=== PATIENT | male | born 1990 | race African-American/Black ===

== ENCOUNTER 2020-11-12 15:17 | Emergency (ER) | payer SELFPAY ==
[2020-11-12 15:37] VITALS: BMI 29.0
[2020-11-12 17:47] LABS: CHLORIDE 103 mmol/L (98-107); POTASSIUM 3.9 mmol/L (3.5-5.1); SODIUM 136 mmol/L (136-145)
[2020-11-12 17:49] LABS: ALBUMIN 4.2 g/dl (3.4-5.0); ANION GAP 7 MMOL/L (8-16); BLOOD UREA NITROGEN 17.1 mg/dL (7-18); CALCIUM 9.1 mg/dL (8.5-10.1); CO2 26 mmol/L (21-32); GLUCOSE,RANDOM 94 mg/dL (74-106)
[2020-11-12 17:52] LABS: CREATININE 1.1 mg/dL (0.55-1.3); SGOT/AST 73 U/L (15-37); SGPT/ALT 131 U/L (13-61)
[2020-11-12 17:55] LABS: ALK PHOS 63 U/L (45-117); BILIRUBIN,TOTAL 0.3 mg/dL (0.2-1); TOT PROT 7.5 g/dl (6.4-8.2)
[2020-11-12 19:06] VITALS: BP 130/82; PULSE 78; TEMP 98.2
== END 2020-11-12 19:06 | disposition home or self-care (01) ==
LOC: JER 15:17
DX: R06.02 Shortness of breath (principal); R07.9 Chest pain, unspecified
CPT/HCPCS: 36415; 80053; 84443; 84484; 93005; 93010; 99284-25

== ENCOUNTER 2023-05-12 17:07 | Emergency (ER) | payer OTHER ==
[2023-05-12 17:27] VITALS: BP 111/66; PULSE 90; RESP 20; TEMP 98.3; BMI 32.3
[2023-05-12] MEDS ORDERED: ACETAMINOPHEN 325 MG TABLET (FP) PO ONE (18:16)
[2023-05-12] MEDS ORDERED: SODIUM CHLORIDE 0.9% 1000 ML INFUS.BAG IV ONE (18:31)
[2023-05-12] MEDS ORDERED: LIDOCAINE 4% PATCH TP ONE ×2 (18:40→18:41)
[2023-05-12] MEDS ORDERED: ACETAMINOPHEN 325 MG TABLET (FP) ONE (18:40)
[2023-05-12] MEDS: LIDOCAINE 5% TOPICAL PATCH TP ONE ×2 (18:45)
[2023-05-12 19:02] LABS: BASO % 0.9 % (0-2.0); EOS % 0.8 % (0-4.5); HEMATOCRIT 39.4 % (35.4-49); HEMOGLOBIN 13.2 GM/dL (11.7-16.9); LYMPH % 43.4 % (8-40); MCH 28.2 pg (25.7-33.7); MCHC 33.6 g/dl (32.0-35.9); MEAN CELL VOLUME 83.8 fl (80-96); MEAN PLT VOLUME 8.7 fl (7.5-11.1); MONO % 9.9 % (3.8-10.2); PLATELET COUNT 223 10^3/uL (134-434); POTASSIUM 4.1 mmol/L (3.5-5.1); RDW 13.9 % (11.9-15.9)
[2023-05-12 19:04] LABS: BLOOD UREA NITROGEN 19.2 mg/dL (7-18); CALCIUM 8.5 mg/dL (8.5-10.1)
[2023-05-12 19:06] LABS: INR 1.03 (0.83-1.09); PROTHROMBIN TIME (PATIENT) 11.9 SEC (9.7-13.0)
[2023-05-12 19:08] LABS: ACTIVATED PTT 29.5 SECONDS (25.2-36.5)
[2023-05-12 19:09] LABS: BILIRUBIN,TOTAL 0.2 mg/dL (0.2-1); TOT PROT 7.3 g/dl (6.4-8.2)
[2023-05-12 19:12] LABS: N-TERMINAL BNP 12.3 pg/ml (5-125)
[2023-05-12] MEDS ORDERED: LIDOCAINE PATCH REMOVAL MC SCH ×2 (22:00)
== END 2023-05-12 20:27 | disposition home or self-care (01) ==
LOC: JER 17:07
DX: R07.89 Other chest pain (principal); I42.9 Cardiomyopathy, unspecified; R73.9 Hyperglycemia, unspecified; R06.02 Shortness of breath; R42 Dizziness and giddiness
CPT/HCPCS: 36415; 71046-TC-FY; 80053; 83735; 83880; 84484; 85025; 85610; 85730; 93005; 93010; 99285-25

== ENCOUNTER 2024-02-07 19:05 | Emergency (ER) | payer OTHER ==
[2024-02-07 19:38] VITALS: BP 123/72; PULSE 63; RESP 18; TEMP 98.2; BMI 29.7
[2024-02-07] MEDS ORDERED: ACETAMINOPHEN INJECTION 100 ML IVPB ONE (20:18)
[2024-02-07] MEDS: ACETAMINOPHEN 1000 MG/100 ML BAG IVPB ONE (20:30)
[2024-02-07 20:37] LABS: BASO % 1.2 % (0-2.0); EOS % 1.4 % (0-4.5); HEMATOCRIT 41.3 % (35.4-49); HEMOGLOBIN 13.2 GM/dL (11.7-16.9); LYMPH % 42.3 % (8-40); MCH 27.8 pg (25.7-33.7); MCHC 32.1 g/dl (32.0-35.9); MEAN CELL VOLUME 86.8 fl (80-96); MEAN PLT VOLUME 8.8 fl (7.5-11.1); MONO % 9.6 % (3.8-10.2); NEUT % 45.5 % (42.8-82.8); PLATELET COUNT 176 10^3/uL (134-434); RBC 4.76 M/mm3 (4.00-5.60); RDW 14.3 % (11.9-15.9); WHITE BLOOD COUNT 4.5 K/mm3 (4.0-10.0)
[2024-02-07 20:56] LABS: ALBUMIN 3.7 g/dl (3.4-5.0); BLOOD UREA NITROGEN 19.6 mg/dL (7-18); CALCIUM 8.8 mg/dL (8.5-10.1)
[2024-02-07 21:00] LABS: CREATININE 1.1 mg/dL (0.55-1.3)
[2024-02-07 21:02] LABS: BILIRUBIN,TOTAL 0.4 mg/dL (0.2-1); TOT PROT 6.8 g/dl (6.4-8.2)
[2024-02-07 21:05] LABS: N-TERMINAL BNP 85.4 pg/ml (5-125)
[2024-02-07] MEDS ORDERED: KETOROLAC TROMETHAMINE 15 MG/ML VIAL ONE (21:13)
[2024-02-07] MEDS: KETOROLAC TROMETHAMINE 15 MG/ML VIAL IVPUSH ONE (21:25)
[2024-02-07] MEDS ORDERED: MAGNESIUM 1GM/D5W - 1 GM/100 ML IVPB IVPB ONE (21:29)
[2024-02-07] MEDS: MAGNESIUM SULF 50% (8.12 MEQ/2 ML-1 GM VIAL) IVPB ONE (21:35)
== END 2024-02-07 22:40 | disposition home or self-care (01) ==
LOC: JER 19:05
PROC: 3E033NZ Introduction of Analgesics, Hypnotics, Sedatives into Peripheral Vein, Percutaneous Approach (ICD-10-PCS; principal; 2024-02-07)
PROC: 3E0333Z Introduction of Anti-inflammatory into Peripheral Vein, Percutaneous Approach (ICD-10-PCS; 2024-02-07)
PROC: 3E033GC Introduction of Other Therapeutic Substance into Peripheral Vein, Percutaneous Approach (ICD-10-PCS; 2024-02-07)
DX: R07.9 Chest pain, unspecified (principal); R42 Dizziness and giddiness; R10.13 Epigastric pain; R61 Generalized hyperhidrosis; R11.0 Nausea; E83.42 Hypomagnesemia
CPT/HCPCS: 36415; 71046-TC-FY; 80053; 83735; 83880; 84484; 85025; 93005; 93010; 99285-25; J0131

== ENCOUNTER 2024-04-12 15:50 | Emergency (ER) | payer OTHER ==
[2024-04-12 15:54] VITALS: BP 126/63; PULSE 58; RESP 18; TEMP 98.6; BMI 30.5
[2024-04-12 17:15] LABS: POTASSIUM 4.2 mmol/L (3.5-5.1)
[2024-04-12 17:17] LABS: ALBUMIN 3.8 g/dl (3.4-5.0); BLOOD UREA NITROGEN 20.9 mg/dL (7-18); MAGNESIUM 2.2 mg/dL (1.8-2.4)
[2024-04-12 17:20] LABS: BASO % 1.3 % (0-2.0); EOS % 0.9 % (0-4.5); HEMATOCRIT 42.2 % (35.4-49); HEMOGLOBIN 13.7 GM/dL (11.7-16.9); MCH 27.6 pg (25.7-33.7); MCHC 32.4 g/dl (32.0-35.9); MEAN CELL VOLUME 85.1 fl (80-96); MEAN PLT VOLUME 9.5 fl (7.5-11.1); MONO % 10.7 % (3.8-10.2); NEUT % 42.1 % (42.8-82.8); PLATELET COUNT 174 10^3/uL (134-434); RBC 4.96 M/mm3 (4.00-5.60); RDW 13.6 % (11.9-15.9)
[2024-04-12 17:22] LABS: BILIRUBIN,TOTAL 0.4 mg/dL (0.2-1)
[2024-04-12] MEDS ORDERED: ACETAMINOPHEN INJECTION 100 ML ONE (17:56)
[2024-04-12] MEDS: ACETAMINOPHEN 1000 MG/100 ML BAG IVPB ONE (18:03)
== END 2024-04-12 21:06 | disposition home or self-care (01) ==
LOC: JER 15:50
PROC: 3E033NZ Introduction of Analgesics, Hypnotics, Sedatives into Peripheral Vein, Percutaneous Approach (ICD-10-PCS; principal; 2024-04-12)
DX: R07.89 Other chest pain (principal); R11.10 Vomiting, unspecified
CPT/HCPCS: 36415; 71046-TC-FY; 71275-TC; 74174-TC; 80053; 83735; 84484; 85025; 86803; 93005; 93010; 99285-25; J0131; Q9967

== ENCOUNTER 2024-08-06 05:46 | Emergency (ER) | payer OTHER ==
[2024-08-06 05:49] VITALS: BMI 29.7
[2024-08-06 06:06] VITALS: RESP 18
[2024-08-06 06:37] LABS: EOS % 0.6 % (0-4.5); HEMATOCRIT 42.4 % (35.4-49); HEMOGLOBIN 13.6 GM/dL (11.7-16.9); MCH 27.4 pg (25.7-33.7); MCHC 32.1 g/dl (32.0-35.9); MEAN CELL VOLUME 85.3 fl (80-96); MEAN PLT VOLUME 8.7 fl (7.5-11.1); MONO % 9.6 % (3.8-10.2); NEUT % 52.8 % (42.8-82.8); PLATELET COUNT 199 10^3/uL (134-434); RBC 4.97 M/mm3 (4.00-5.60); RDW 14.3 % (11.9-15.9); WHITE BLOOD COUNT 5.3 K/mm3 (4.0-10.0)
[2024-08-06 06:55] LABS: POTASSIUM 3.8 mmol/L (3.5-5.1)
[2024-08-06 06:57] LABS: ALBUMIN 3.9 g/dl (3.4-5.0); BLOOD UREA NITROGEN 19.6 mg/dL (7-18); CALCIUM 8.9 mg/dL (8.5-10.1); MAGNESIUM 1.9 mg/dL (1.8-2.4)
[2024-08-06 07:03] LABS: BILIRUBIN,TOTAL 0.2 mg/dL (0.2-1)
[2024-08-06 08:30] VITALS: BP 101/57; PULSE 72
[2024-08-06 09:00] VITALS: TEMP 98.2
== END 2024-08-06 09:52 | disposition home or self-care (01) ==
LOC: JER 05:46
DX: R00.2 Palpitations (principal); R07.89 Other chest pain; R00.0 Tachycardia, unspecified
CPT/HCPCS: 36415; 71045-TC-FY; 80053; 83735; 84484; 85025; 93005; 93010; 99285-25